=== PATIENT | female | born 1975 | race Two or more races ===

== ENCOUNTER 2017-04-29 23:24 | Emergency (ER) | payer BC ==
--- NOTE | 2017-04-29 23:57 | EDM.PDOC ---
ED HPI GENERAL MEDICAL PROBLEM - General Chief Complaint: Genitourinary Problem Stated Complaint: BLOOD IN HER URINE Time Seen by Provider: 04/29/17 23:30 Source of Information: Reports: Patient History Limitations: Reports: No Limitations - History of Present Illness INITIAL COMMENTS - FREE TEXT/NARRATIVE: This is a 41-year-old female. She has been traveling recently and been drinking lots of sodas she travels and not urinating much and yesterday she noted some redness to her urine so she started drinking more water and it seemed to go away. Today when she awoke she noted redness in her urine again and she is having a lot of pain when she urinates. There's been no back pain she is not on her menstrual period she's had no fever or chills. She denies any other acute symptoms at this time. She's had no abdominal discomfort or bladder spasms that are noted. Just dysuria with urination. - Related Data Allergies Allergy/AdvReac Type Severity Reaction Status Date / Time No Known Allergies Allergy Verified 04/29/17 23:32 Home Meds: Home Meds Phenazopyridine HCl [Azo Urinary Pain Relief] 95 mg PO DAILY 04/29/17 [History] Cephalexin 500 mg PO TID #15 capsule 04/30/17 [Rx] Phenazopyridine [Pyridium] 100 mg PO TID #6 tablet 04/30/17 [Rx] Past Medical History Hematologic History: Reports: Other (See Below) Other Hematologic History: Thalassemia - Past Surgical History Female Surgical History: Reports: Tubal Ligation Social & Family History - Tobacco Use Smoking Status *Q: Never Smoker - Recreational Drug Use Recreational Drug Use: No ED ROS GENERAL - Review of Systems Review Of Systems: See Below Constitutional: Denies: Fever, Chills HEENT: Reports: No Symptoms Respiratory: Reports: No Symptoms Cardiovascular: Reports: No Symptoms Endocrine: Reports: No Symptoms GI/Abdominal: Denies: Abdominal Pain, Nausea, Vomiting : Reports: Dysuria, Hematuria Musculoskeletal: Reports: No Symptoms Skin: Reports: No Symptoms Neurological: Reports: No Symptoms Psychiatric: Reports: No Symptoms Hematologic/Lymphatic: Reports: No Symptoms ED EXAM, RENAL/ - Physical Exam Exam: See Below Exam Limited By: No Limitations General Appearance: Alert, WD/WN, No Apparent Distress Eye Exam: Bilateral Eye: Normal Inspection Ears: Normal External Exam Nose: Normal Inspection Throat/Mouth: Normal Inspection, Normal Lips, Normal Voice Head: Normocephalic Neck: Supple Respiratory/Chest: No Respiratory Distress, Lungs Clear, Normal Breath Sounds Cardiovascular: Regular Rate, Rhythm, No Murmur GI/Abdominal: Soft, Non-Tender Back Exam: Full Range of Motion. No: CVA Tenderness (L), CVA Tenderness (R) Extremities: Normal Inspection, Normal Range of Motion Neurological: Alert, Oriented Psychiatric: Normal Affect, Normal Mood Skin Exam: Warm, Dry Course - Vital Signs Last Recorded V/S: Last Vital Signs Temp 98.4 F 04/29/17 23:33 Pulse 89 04/29/17 23:33 Resp 16 04/29/17 23:33 BP 143/82 H 04/29/17 23:33 Pulse Ox 100 04/29/17 23:33 - Orders/Labs/Meds Orders: Active Orders 24 hr Category Date Time Status Phenazopyridine [Urinary Pain Relief] Med 04/30/17 00:15 Ordered 95 mg PO TIDPC cefTRIAXone 1 GM with Lidocaine 1% 2.1 ML IM Med 04/30/17 00:15 Ordered cefTRIAXone [Rocephin] 1 gm Lidocaine 1% [Xylocaine 1%] 2.1 ml IM Q24H Medication Orders Ceftriaxone Sodium 1 gm/ (Lidocaine HCl 2.1 ml) 0 gm IM Q24H DENICE Labs: Laboratory Tests 04/29/17 Range/Units 23:38 Urine Color [place] H (Yellow) Urine Appearance Slt cloudy H (Clear) Urine pH 7.0 (5.0-8.0) Ur Specific [place] 1.010 (1.005-1.030) Urine Protein 2+ H (Negative) Urine Glucose (UA) Negative (Negative) Urine Ketones Negative (Negative) Urine Occult Blood 3+ H (Negative) Urine Nitrite Negative (Negative) Urine Bilirubin Negative (Negative) Urine Urobilinogen 0.2 (0.2-1.0) Ur Leukocyte Esterase 3+ H (Negative) Urine RBC 40-50 H (0-5) /hpf Urine WBC 40-50 H (0-5) /hpf Urine WBC Clumps Few (NOT SEEN) /hpf Ur Epithelial Cells Not seen (0-5) /hpf Amorphous Sediment Moderate H (NOT SEEN) /hpf Urine Bacteria Rare (FEW) /hpf Urine Mucus Not seen (FEW) /hpf Meds: Medications Generic Name Dose Route Start Last Admin Trade Name Evens PRN Reason Stop Dose Admin Ceftriaxone Sodium 1 gm/ 0 gm 04/30/17 00:15 Lidocaine HCl 2.1 ml IM Q24H [facility] - Re-Assessments/Exams Free Text/Narrative Re-Assessment/Exam: 04/30/17 00:08 I spoke to the patient regarding her urine results. Please note that there is such an abundance of white cells and red cells but bacteria appear to be rare but they're just secured by all of the cells in her urine. She is opted for a Rocephin shot in the ER though she'll still be on some antibiotic pills for 5 days after that and I'll place her on Pyridium to help her with the dysuria. She knows not to drink sodas and to drink lots of water. Departure - Departure Time of Disposition: 00:08 Disposition: Home, Self-Care 01 Condition: Good Clinical Impression: Acute hemorrhagic cystitis Urinary tract infection Qualifiers: Urinary tract infection type: acute cystitis Hematuria presence: with hematuria Qualified Code(s): N30.01 - Acute cystitis with hematuria - Discharge Information Prescriptions: Cephalexin 500 mg PO TID #15 capsule Phenazopyridine [Pyridium] 100 mg PO TID #6 tablet Referrals: PCP,None [Primary Care Provider] - Forms: ED Department Discharge Additional Instructions: Drink lots of water and no sodas, start the antibiotic pills Monday evening or Monday morning, use the Pyridium 3 times a day to help with the burning on urination, be aware that the Pyridium will change your urine to orange so don't be concerned that your urine is orange now, follow-up with your family doctor after done with the antibiotics to make certain the infection has resolved, return to the ER if needed - My Orders Last 24 Hours: My Active Orders 04/30/17 00:15 Phenazopyridine [Urinary Pain Relief] 95 mg PO TIDPC cefTRIAXone 1 GM with Lidocaine 1% 2.1 ML IM cefTRIAXone [Rocephin] 1 gm Lidocaine 1% [Xylocaine 1%] 2.1 ml IM Q24H - Assessment/Plan Last 24 Hours: My Active Orders 04/30/17 00:15 Phenazopyridine [Urinary Pain Relief] 95 mg PO TIDPC cefTRIAXone 1 GM with Lidocaine 1% 2.1 ML IM cefTRIAXone [Rocephin] 1 gm Lidocaine 1% [Xylocaine 1%] 2.1 ml IM Q24H
[2017-04-30] MEDS ORDERED: Phenazopyridine 95 MG Tab PO SCH (00:15)
[2017-04-30] MEDS ORDERED: cefTRIAXone 1 GM, Lidocaine 1% 2.1 ML IM SCH ×2 (00:15)
[2017-04-30] MEDS ORDERED: cefTRIAXone 1 GM Vial ONE (00:16)
[2017-04-30] MEDS ORDERED: Lidocaine 1% 2 ML ONE (00:17)
== END 2017-04-30 00:33 | disposition home or self-care (01) ==
LOC: JD.ED 23:24
DX: N30.01 Acute cystitis with hematuria (principal)
CPT/HCPCS: 81001; 96372; 99283; A9270; J0696

== ENCOUNTER 2020-10-21 12:28 | Emergency (ER) | payer OTHER, BC ==
[2020-10-21] MEDS ORDERED: Sodium Chloride 0.9% 10 ML Syringe FLUSH PRN ×2 (12:52→12:56)
[2020-10-21] MEDS ORDERED: Iopamidol 612 MG/ML 100 ML Bottle IVPUSH ONE (12:56)
[2020-10-21] MEDS ORDERED: Iopamidol 612 MG/ML 50 ML SDV IVPUSH ONE (12:56)
--- NOTE | 2020-10-21 13:29 | CT ---
CT cervical spine Technique: Multiple axial sections were obtained from above C1 inferiorly to the bottom of T1. Reconstructed coronal and sagittal images were obtained. Comparison: No prior cervical spine imaging is available. Findings: Vertebral body heights and disc spaces are maintained. No bony central or bony neural foraminal stenosis is seen. Visualized lung apices are clear. No fracture or subluxation is seen. Impression: 1. No abnormality is identified on CT study of the cervical spine. Diagnostic code #1
--- NOTE | 2020-10-21 13:39 | CT ---
CT chest Technique: Multiple axial sections through the chest were obtained. Intravenous contrast was utilized. Reconstructed coronal and sagittal images were obtained. Comparison: No prior chest imaging is available. Findings: Thoracic aorta shows no aneurysm. No mediastinal adenopathy or hilar adenopathy is seen. No pericardial thickening is seen. No axillary adenopathy is noted. Minimal low density finding is seen within the right lobe of the thyroid gland believed to be incidental. No pericardial thickening is seen. Lung window settings were reviewed. No acute parenchymal change is seen within either lung. No pleural effusions are noted. Bone window settings were reviewed which shows no acute osseous abnormality. Impression: 1. Minimal low density finding within the right lobe of the thyroid gland believed to be incidental. 2. Nothing acute is appreciated on CT study of the chest. Diagnostic code #2 CT abdomen and pelvis Technique: Multiple axial sections were obtained from above the dome of the diaphragm inferiorly through the pubic symphysis. Intravenous contrast was utilized. No oral contrast has been given. Reconstructed coronal and sagittal images were obtained. Findings: Upper right lobe of the liver shows a small low-density lesion measuring about 3 mm which is most likely due to minimal cyst. No additional abnormality is seen within the liver. Spleen size is normal. Adrenal glands show no nodule. Pancreas is within normal limits. Gallbladder contains no calcified gallstones. Kidneys show symmetric contrast enhancement. No hydronephrosis or mass is seen. Abdominal aorta shows no aneurysm. No retroperitoneal adenopathy or mesenteric abnormalities are seen. Appendix is seen which is normal in size. No pelvic mass or adenopathy is identified. Numerous nabothian cysts are present within the cervix. Small amount of debris is noted within the endometrial cavity and please rule out . Bone window settings were reviewed which show no acute osseous finding. Impression: 1. Small amount of debris within the endometrial cavity. Please rule out . 2. Numerous nabothian cysts within the cervix. 3. Other findings which are believed to be incidental. Nothing acute is seen on CT study of the abdomen and pelvis. Diagnostic code #3
--- NOTE | 2020-10-21 13:40 | CT ---
Head CT Technique: Multiple axial sections through the brain were obtained. Intravenous contrast was not utilized. Reconstructed coronal and sagittal images were obtained. Comparison: No prior intracranial imaging is available. Findings: Ventricles along with basal cisterns and sulci over the convexities appear within normal limits for the patient's age. No abnormal parenchymal densities are seen. No evidence of intracranial hemorrhage. No midline shift or mass-effect is seen. Bone window settings were reviewed. Visualized mastoid sinuses and paranasal sinuses show nothing acute. No acute calvarial finding is appreciated. Impression: 1. Nothing acute is appreciated on noncontrast head CT study. Diagnostic code #1
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
== END 2020-10-21 15:20 | disposition home or self-care (01) ==
LOC: JD.ED 12:28
DX: S20.212A Contusion of left front wall of thorax, initial encounter (principal); S30.1XXA Contusion of abdominal wall, initial encounter; R51.9 Headache, unspecified; I10 Essential (primary) hypertension; Z79.899 Other long term (current) drug therapy; Y92.410 Unspecified street and highway as the place of occurrence of the external cause
CPT/HCPCS: 36415; 70450; 71260; 72125; 74177; 80053; 81001; 83690; 84703; 85025; 99284; Q9967

== ENCOUNTER 2021-04-20 18:25 | Emergency (ER) | payer BC ==
--- NOTE | 2021-04-20 19:31 | EDM.PDOC ---
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 Patient states her primary care provider is Dr. Acosta. States that she had an appointment with her PCP this morning, and did have a lesion identified that did look like possible cancer. Patient states that soaked through at least 3-4 adult briefs (depends) since about 4 PM. She is not having any sort of dizziness or lightheadedness. She is concerned about the amount of blood that she is losing and was not really sure what to do so she comes to the ER for evaluation. Not having any fevers or chills, cough or shortness of breath or any other sick-like symptoms. - Related Data Allergies Allergy/AdvReac Type Severity Reaction Status Date / Time No Known Allergies Allergy Verified 04/20/21 18:49 Home Meds: Home Meds lisinopriL [Lisinopril] 10 mg PO DAILY 10/21/20 [History] Past Medical History - Past Health History Medical/Surgical History: Denies Medical/Surgical History Cardiovascular History: Reports: Hypertension Hematologic History: Reports: Other (See Below) Other Hematologic History: Thalassemia - Infectious Disease History Infectious Disease History: Reports: None, Novel Coronavirus - Past Surgical History Female Surgical History: Reports: Tubal Ligation Social & Family History - Tobacco Use Tobacco Use Status *Q: Never Tobacco User - Caffeine Use Caffeine Use: Reports: None ED ROS GENERAL - Review of Systems Review Of Systems: Comprehensive ROS is negative, except as noted in HPI. ED EXAM, RENAL/ - Physical Exam Exam: See Below Exam Limited By: No Limitations General Appearance: Alert, WD/WN, No Apparent Distress Respiratory/Chest: No Respiratory Distress, Lungs Clear, Normal Breath Sounds, No Accessory Muscle Use, Chest Non-Tender Cardiovascular: Normal Peripheral Pulses, Regular Rate, Rhythm GI/Abdominal: Normal Bowel Sounds, Soft, Non-Tender, No Distention, No Mass (Female) Exam: Vaginal Bleeding (large dark red clot at entrance of introitus and in the depends the patient is wearing. Was not able to visualize the cervix due to blood in the vaginal canal.) Course - Vital Signs Last Recorded V/S: Last Vital Signs Temp 98.0 F 04/20/21 18:47 Pulse 105 H 04/20/21 18:47 Resp 18 04/20/21 18:47 BP 137/91 H 04/20/21 18:47 Pulse Ox 100 04/20/21 18:47 - Orders/Labs/Meds Orders: Active Orders 24 hr Category Date Time Status Notify Provider Consults [RC] ASDIRECTED Care 04/20/21 20:03 Ordered Peripheral IV Care [RC] . DIRECTED Care 04/20/21 20:53 Ordered Consult to Physician [CONS] Stat Cons 04/20/21 20:02 Ordered Transvaginal Non OB [US] Stat Exams 04/20/21 20:47 Ordered COVID-19/FLU A+B [MOLEC] Stat Lab 04/20/21 20:53 Ordered INR,PT,PROTHROMBIN TIME [COAG] Stat Lab 04/20/21 21:53 Ordered PATIENT RETYPE [BBK] Routine Lab 04/20/21 22:11 Ordered PTT,PARTIAL THROMBOPLSTIN TIME [COAG] Stat Lab 04/20/21 21:53 Ordered Sodium Chloride 0.9% [Normal Saline] 1,000 ml Med 04/20/21 21:38 Ordered IV ONETIME Sodium Chloride 0.9% [Saline Flush] Med 04/20/21 20:53 Ordered 10 ml FLUSH ASDIRECTED PRN Peripheral IV Insertion Adult [OM.PC] Routine Oth 04/20/21 20:53 Ordered Medication Orders Sodium Chloride (Normal Saline) 1,000 mls @ 999 mls/hr IV ONETIME ONE Stop: 04/20/21 22:38 Last Admin: 04/20/21 22:17 Dose: 999 mls/hr Documented by: Sodium Chloride (Sodium Chloride 0.9% 10 Ml Syringe) 10 ml FLUSH ASDIRECTED PRN PRN Reason: Keep Vein Open Labs: Laboratory Tests 04/20/21 04/20/21 04/20/21 Range/Units 19:42 19:42 19:42 WBC 8.64 (3.98-10.04) K/mm3 RBC 4.97 (3.98-5.22) M/mm3 Hgb 11.9 (11.2-15.7) gm/dl Hct 37.9 (34.1-44.9) % MCV 76.3 L (79.4-94.8) fl MCH 23.9 L (25.6-32.2) pg MCHC 31.4 L (32.2-35.5) g/dl RDW Std Deviation 39.9 (36.4-46.3) fL Plt Count 389 H (182-369) K/mm3 MPV 9.1 L (9.4-12.3) fl Neut % (Auto) 60.8 (34.0-71.1) % Lymph % (Auto) 29.9 (19.3-51.7) % [place] % (Auto) 7.1 (4.7-12.5) % Eos % (Auto) 1.7 (0.7-5.8) Baso % (Auto) 0.3 (0.1-1.2) % Neut # (Auto) 5.25 (1.56-6.13) K/mm3 Lymph # (Auto) 2.58 (1.18-3.74) K/mm3 [place] # (Auto) 0.61 H (0.24-0.36) K/mm3 Eos # (Auto) 0.15 (0.04-0.36) K/mm3 Baso # (Auto) 0.03 (0.01-0.08) K/mm3 Sodium 138 (136-145) mEq/L Potassium 4.2 (3.5-5.1) mEq/L Chloride 104 (98-107) mEq/L Carbon Dioxide 28 (21-32) mEq/L Anion Gap 10.2 (5-15) BUN 11 (7-18) mg/dL Creatinine 0.7 (0.55-1.02) mg/dL Est Cr Clr Drug Dosing TNP Estimated GFR (MDRD) > 60 (>60) mL/min BUN/Creatinine Ratio 15.7 (14-18) Glucose 101 H (70-99) mg/dL Calcium 8.6 (8.5-10.1) mg/dL Total Bilirubin 0.6 (0.2-1.0) mg/dL AST 37 (15-37) U/L ALT 102 H (14-59) U/L Alkaline Phosphatase 175 H (46-116) U/L Total Protein 7.0 (6.4-8.2) g/dl Albumin 3.5 (3.4-5.0) g/dl Globulin 3.5 gm/dL Albumin/Globulin Ratio 1.0 (1-2) Blood Type B POSITIVE Gel Antibody Screen Negative Meds: Medications Generic Name Dose Route Start Last Admin Trade Name Evens PRN Reason Stop Dose Admin Sodium Chloride 1,000 mls @ 999 mls/hr 04/20/21 21:38 04/20/21 22:17 Normal Saline IV 04/20/21 22:38 999 mls/hr ONETIME ONE Administration Sodium Chloride 10 ml 04/20/21 20:53 Sodium Chloride 0.9% 10 Ml Syringe FLUSH ASDIRECTED PRN Keep Vein Open - Re-Assessments/Exams Free Text/Narrative Re-Assessment/Exam: 04/20/21 19:30 Patient presents to the ER for her heavy vaginal bleeding, we will go ahead and get a basic CBC, and consult with SHIPPING INSPECTOR for ongoing management. I was not able to get a good view of the cervix. Due to the patient having a recent biopsy, she might need to have the area reassessed, and I do believe that SHIPPING INSPECTOR would be much more suited for this endeavor. 04/20/21 20:03 CBC has resulted, and hemoglobin is within normal limits at this time, I did call and discussed the case with Dr. Michele and she states she will be in to evaluate the patient. 04/20/21 22:20 Dr. Michele did come in to evaluate the patient, and there is a lesion that is highly suspect for malignancy. It was pretty friable and she was able to get some sort of biopsy from the material. She does recommend transfer to gynecology services preferably with oncology on staff. I did call [facility], [facility] in [facility] for possible transfer and all of them were on diversion or not excepting patients that were traumas, STEMI's, strokes. I did get in touch with [facility], and talked with Dr. Jose Mtz, gynecology oncology services and he did ultimately accept the patient for transfer, and we did also talk with Dr. Mishra at the [facility] ER. Images have been pushed to their facility for the review. And patient be transferred to [facility] via air ambulance as ground ambulance would not be appropriate for this patient due to length of travel. Patient's vitals are stable at the last examination. Departure - Departure Time of Disposition: 22:16 Disposition: DC/Tfer to Acute Hospital 02 Condition: Fair Clinical Impression: Vaginal bleeding, Abnormal uterine bleeding due to endocervical polyp - Discharge Information Referrals: Kenya Finley MD [Primary Care Provider] - Forms: ED Department Discharge Sepsis Event Note (ED) - Evaluation Sepsis Screening Result: No Definite Risk - Focused Exam Vital Signs: Vital Signs Temp Pulse Resp BP Pulse Ox 04/20/21 18:47 98.0 F 105 H 18 137/91 H 100 - My Orders Last 24 Hours: My Active Orders 04/20/21 20:02 Consult to Physician [CONS] Stat 04/20/21 20:03 Notify Provider Consults [RC] ASDIRECTED 04/20/21 20:53 Peripheral IV Care [RC] . DIRECTED COVID-19/FLU A+B [MOLEC] Stat Sodium Chloride 0.9% [Saline Flush] 10 ml FLUSH ASDIRECTED PRN Peripheral IV Insertion Adult [OM.PC] Routine 04/20/21 21:38 Sodium Chloride 0.9% [Normal Saline] 1,000 ml IV ONETIME 04/20/21 21:53 INR,PT,PROTHROMBIN TIME [COAG] Stat PTT,PARTIAL THROMBOPLSTIN TIME [COAG] Stat 04/20/21 22:11 PATIENT RETYPE [BBK] Routine - Assessment/Plan Last 24 Hours: My Active Orders 04/20/21 20:02 Consult to Physician [CONS] Stat 04/20/21 20:03 Notify Provider Consults [RC] ASDIRECTED 04/20/21 20:53 Peripheral IV Care [RC] . DIRECTED COVID-19/FLU A+B [MOLEC] Stat Sodium Chloride 0.9% [Saline Flush] 10 ml FLUSH ASDIRECTED PRN Peripheral IV Insertion Adult [OM.PC] Routine 04/20/21 21:38 Sodium Chloride 0.9% [Normal Saline] 1,000 ml IV ONETIME 04/20/21 21:53 INR,PT,PROTHROMBIN TIME [COAG] Stat PTT,PARTIAL THROMBOPLSTIN TIME [COAG] Stat 04/20/21 22:11 PATIENT RETYPE [BBK] Routine
[2021-04-20] MEDS ORDERED: Sodium Chloride 0.9% 10 ML Syringe FLUSH PRN (20:53)
--- NOTE | 2021-04-20 20:57 | EDM.PDOC ---
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 At that time she reported daily menstrual flow since March 09 with clots. No cramping. Previously uncomplicated gynecologic history. Had a tubal ligation 15 years ago. Normal pap with negative HPV 8 months ago. On the exam in clinic there is described a firm cervix with a mass and nodularity. No blood on that exam. Then at 4 pm began having bleeding such that she soaked 5 adult diapers. Presented to ER where she is stable but continued to have bleeding. - Related Data Allergies Allergy/AdvReac Type Severity Reaction Status Date / Time No Known Allergies Allergy Verified 04/20/21 18:49 Home Meds: Home Meds lisinopriL [Lisinopril] 10 mg PO DAILY 10/21/20 [History] Past Medical History - Past Health History Medical/Surgical History: Denies Medical/Surgical History Cardiovascular History: Reports: Hypertension Hematologic History: Reports: Other (See Below) Other Hematologic History: Thalassemia - Infectious Disease History Infectious Disease History: Reports: None, Novel Coronavirus - Past Surgical History Female Surgical History: Reports: Tubal Ligation Social & Family History - Tobacco Use Tobacco Use Status *Q: Never Tobacco User - Caffeine Use Caffeine Use: Reports: None ED ROS GENERAL - Review of Systems Constitutional: Reports: No Symptoms HEENT: Reports: No Symptoms Respiratory: Reports: No Symptoms Cardiovascular: Reports: No Symptoms Endocrine: Reports: No Symptoms GI/Abdominal: Reports: No Symptoms : Reports: Other (as per hpi) Musculoskeletal: Reports: No Symptoms Skin: Reports: No Symptoms Neurological: Reports: No Symptoms Psychiatric: Reports: No Symptoms Hematologic/Lymphatic: Reports: No Symptoms Immunologic: Reports: No Symptoms ED EXAM, RENAL/ - Physical Exam Exam: See Below Exam Limited By: Language Barrier General Appearance: Alert, Anxious Respiratory/Chest: No Respiratory Distress, Lungs Clear GI/Abdominal: Soft, Non-Tender (Female) Exam: Cervical Lesions (Cervix firm on bimanual exam with nodularity. Significant bleeding from cervix.), Other (External exam with clot. Approximately 40 ml of clot evacuated from vagina. Enlarged cervix on speculum exam with mass protruding. Initially appeared like possibly prolapsed fibroid but grasped with ring forceps and concerning for malignancy as very friable and breaks into multiple pieces (sent to p) Course - Vital Signs Last Recorded V/S: Last Vital Signs Temp 36.7 C 04/20/21 18:47 Pulse 105 H 04/20/21 18:47 Resp 18 04/20/21 18:47 BP 137/91 H 04/20/21 18:47 Pulse Ox 100 04/20/21 18:47 - Orders/Labs/Meds Orders: Active Orders 24 hr Category Date Time Status Notify Provider Consults [RC] ASDIRECTED Care 04/20/21 20:03 Active Consult to Physician [CONS] Stat Cons 04/20/21 20:02 Active Transvaginal Non OB [US] Stat Exams 04/20/21 20:47 Ordered Labs: Laboratory Tests 04/20/21 Range/Units 19:42 WBC 8.64 (3.98-10.04) K/mm3 RBC 4.97 (3.98-5.22) M/mm3 Hgb 11.9 (11.2-15.7) gm/dl Hct 37.9 (34.1-44.9) % MCV 76.3 L (79.4-94.8) fl MCH 23.9 L (25.6-32.2) pg MCHC 31.4 L (32.2-35.5) g/dl RDW Std Deviation 39.9 (36.4-46.3) fL Plt Count 389 H (182-369) K/mm3 MPV 9.1 L (9.4-12.3) fl Neut % (Auto) 60.8 (34.0-71.1) % Lymph % (Auto) 29.9 (19.3-51.7) % [place] % (Auto) 7.1 (4.7-12.5) % Eos % (Auto) 1.7 (0.7-5.8) Baso % (Auto) 0.3 (0.1-1.2) % Neut # (Auto) 5.25 (1.56-6.13) K/mm3 Lymph # (Auto) 2.58 (1.18-3.74) K/mm3 [place] # (Auto) 0.61 H (0.24-0.36) K/mm3 Eos # (Auto) 0.15 (0.04-0.36) K/mm3 Baso # (Auto) 0.03 (0.01-0.08) K/mm3 Departure - Discharge Information Referrals: Kenya Finley MD [Primary Care Provider] - Forms: ED Department Discharge Sepsis Event Note (ED) - Evaluation Sepsis Screening Result: No Definite Risk - Focused Exam Vital Signs: Vital Signs Temp Pulse Resp BP Pulse Ox 04/20/21 18:47 36.7 C 105 H 18 137/91 H 100 - Problem List Review Problem List Initiated/Reviewed/Updated: Yes - My Orders Last 24 Hours: My Active Orders 04/20/21 20:47 Transvaginal Non OB [US] Stat - Assessment/Plan Last 24 Hours: My Active Orders 04/20/21 20:47 Transvaginal Non OB [US] Stat Plan: 1. Concerning bleeding with tachycardia - 2. Cervical mass concerning for cancer in setting of active bleeding. - needs observation if not admission and concern for further bleeding in the setting of this quantity of bleeding means patient needs transfer to a place where she could receive appropriate managment if this is a malignancy. 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 - no bed availability here regardless so patient needs transfer -preferably to location with shoe sewing machine operator and tender-onc access. -
[2021-04-20] MEDS ORDERED: Sodium Chloride 0.9% 1,000 ML IV ONE (21:38)
--- NOTE | 2021-04-21 07:22 | US ---
Pelvic ultrasound: Multiple real-time images were obtained transvaginally. Comparison: No prior pelvic imaging is available. Uterus is retroflexed. Endometrial thickness is increased at 1.9 cm. 2.3 cm fibroid is seen off the uterine fundus. Several small cystic areas are seen within the endometrium measuring up to 4.1 mm. Numerous nabothian cysts are present. Both ovaries show follicles. Dominant follicle is seen within the left ovary measuring 2.5 cm. No free fluid is seen within the pelvis. Measurements: Right ovary: 1.5 x 1.0 x 1.2 cm Left ovary: 3.5 x 2.2 x 2.1 cm Uterus: Length 9.1 cm, AP height 5.6 cm, transverse width 6.2 cm Impression: 1. Increased endometrial thickness at 1.9 cm. Small cystic areas are seen within the endometrium. 2. Multiple nabothian cysts are present. 3. Fundal fibroid measuring 2.3 cm is seen. 4. Follicles within both ovaries with dominant follicle measuring 2.5 cm within the left ovary. Diagnostic code #3 I agree with preliminary report from [facility], finalized on 04/20/21, 11:47 PM CDT, code 1
== END 2021-04-21 00:03 ==
LOC: JD.ED 18:25
DX: N93.9 Abnormal uterine and vaginal bleeding, unspecified (principal); I10 Essential (primary) hypertension; Z79.899 Other long term (current) drug therapy; Z86.16 Personal history of COVID-19
CPT/HCPCS: 36415; 76830; 80053; 85025; 85610; 85730; 86850; 86900; 86901; 99285; J7030